=== PATIENT | male | born 1975 | race Caucasian/White ===

== ENCOUNTER 2018-07-07 02:15 | Emergency (ER) | payer BC ==
[~2018-07-07] VITALS: Ht 193 cm; Wt 90.7 kg
--- NOTE | 2018-07-07 02:35 | NUR ---
PT BIBBROTHER C/O UNWITNESSED SYNCOPAL EPISODE S/P SHARP ABD PAIN X 1 HR AGO. PT STATES NO ABD PAIN. NOTED ABRASIONS TO FACE. PT AOX4. NAD NOTED. RESP EVEN AND UNLABORED. PT ON MONITOR IN BED 9 WITH BROTHER AT BEDSIDE. WILL CONTINUE TO MONITOR.
--- NOTE | 2018-07-07 02:45 | NUR ---
TECH AT BEDSIDE FOR EKG
--- NOTE | 2018-07-07 02:53 | NUR ---
PHLEB AT BEDSIDE FOR LAB DRAW
[2018-07-07] MEDS ORDERED: ACETAMINOPHEN ES 500 MG TABLET PO ONE (03:00)
[2018-07-07 03:02] LABS: BASOPHILS # (AUTO) 0.1 /CMM (0.0-0.2); BASOPHILS % (AUTO) 0.7 % (0.0-2.0); EOSINOPHILS % (AUTO) 1.7 % (0.0-6.0); HEMATOCRIT 48 % (39-51); HEMOGLOBIN 16.1 g/dL (13.5-17.5); LYMPHOCYTES # (AUTO) 1.8 /CMM (0.8-4.8); LYMPHOCYTES % (AUTO) 16.7 % (20.0-44.0); MEAN CORPUSCULAR HGB CONC 34 g/dl (31.0-36.0); MEAN CORPUSCULAR VOLUME 87 fL (80-96); MONOCYTES # (AUTO) 1.1 /CMM (0.1-1.30); MONOCYTES % (AUTO) 9.8 % (2.0-12.0); NEUTROPHILS # (AUTO) 7.9 /CMM (1.8-8.9); NEUTROPHILS % (AUTO) 71.1 % (43.0-81.0); PLATELET COUNT (AUTO) 213 /CMM (150-450); RED BLOOD CELL COUNT(AUTO) 5.47 MIL/uL (4.5-6.0)
[2018-07-07 03:12] LABS: CALCIUM, SERUM 9.4 mg/dL (8.5-10.1); CARBON DIOXIDE 26 mmol/L (21-32); CHLORIDE 104 mmol/L (98-107); GLUCOSE 105 mg/dL (74-106); POTASSIUM 3.8 mmol/L (3.5-5.1); SODIUM SERUM 139 mmol/L (136-145); UREA NITROGEN, BLOOD 18 mg/dL (7-18)
[2018-07-07] MEDS ORDERED: ACETAMINOPHEN ES 500 MG TABLET ONE (03:14)
[2018-07-07 03:18] LABS: ALANINE AMINOTRANSFERASE 94 U/L (12-78); ALBUMIN 3.8 g/dL (3.4-5.0); ALKALINE PHOSPHATASE 101 U/L (46-116); ASPARTATE AMINOTRANSFERASE 173 U/L (15-37); BILIRUBIN,DIRECT 0.1 mg/dL (0.0-0.2); BILIRUBIN,TOTAL 0.5 mg/dL (0.2-1.0); TOTAL PROTEIN, SERUM 7.4 g/dL (6.4-8.2)
--- NOTE | 2018-07-07 03:24 | NUR ---
PT TAKEN TO RADIOLOGY VIA OK
--- NOTE | 2018-07-07 03:58 | NUR ---
PT C/O NUMBNESS IN BILAT UPPER EXTREMITIES. AWARE.
[2018-07-07] MEDS ORDERED: HYDROCODONE/APAP 5/325MG 1 EACH TABLET ONE ×2 (04:11→07:34)
[2018-07-07] MEDS ORDERED: HYDROCODONE/APAP 5/325MG 1 EACH TABLET PO ONE ×2 (04:30→07:30)
--- NOTE | 2018-07-07 04:47 | NUR ---
Patient is resting comfortably in bed with eyes closed. Easily aroused. VSS
--- NOTE | 2018-07-07 06:20 | NUR ---
PT RESTING IN BED W/ BROTHER AT BEDSIDE. VSS. PT DENIES AT PAIN AT THIS TIME.
--- NOTE | 2018-07-07 07:25 | NUR ---
REPORT GIVEN TO KARLEE SOUTH RN FOR [facility]
--- NOTE | 2018-07-07 07:36 | NUR ---
RECEIVED REPORT FROM KHALIF RIBEIRO FOR [facility]. PT IS AAOX4, NOT IN RESPIRAOTRY DISTRESS, WAITING MRI, WILL CONTINUE TO MONITOR.
--- NOTE | 2018-07-07 07:43 | NUR ---
TEXTED DR. QUARLES FOR MRI APPROVAL.
--- NOTE | 2018-07-07 07:59 | NUR ---
CALLED [facility] FOR MRI SCHED.
--- NOTE | 2018-07-07 08:10 | NUR ---
DR. WILKERSON AT BEDSIDE REGARDING MRI INFO.
[2018-07-07] MEDS ORDERED: CYCLOBENZAPRINE 10 MG TABLET ONE (10:27)
[2018-07-07] MEDS ORDERED: CYCLOBENZAPRINE 10 MG TABLET PO ONE (10:30)
--- NOTE | 2018-07-07 10:53 | NUR ---
CALLED AGAIN [facility] FOR FOLLOW UP MRI SCHED.
--- NOTE | 2018-07-07 11:20 | NUR ---
PT IS WHEELED TO CT SCAN.
--- NOTE | 2018-07-07 11:47 | NUR ---
PT IS BACK FROM THE MRI.
[2018-07-07 12:48] VITALS: BP 128/68
--- NOTE | 2018-07-07 12:48 | NUR ---
Patient discharged to home in stable condition. Written and verbal after care instructions given. Patient verbalizes understanding of instruction.
== END 2018-07-07 12:49 | disposition home or self-care (01) ==
LOC: ER 02:20
DX: S05.12XA Contusion of eyeball and orbital tissues, left eye, initial encounter (principal); F17.210 Nicotine dependence, cigarettes, uncomplicated; Z98.890 Other specified postprocedural states; W18.39XA Other fall on same level, initial encounter; Y93.89 Activity, other specified; Y92.89 Other specified places as the place of occurrence of the external cause; Y99.8 Other external cause status
CPT/HCPCS: 36415; 70450; 72125; 72141; 80048; 80076; 84484; 85025; 93005; 99284; A4606; L0172